=== PATIENT | female | born 1975 | race Caucasian/White ===

== ENCOUNTER 2019-03-08 14:28 | Emergency (ER) | payer OTHER, BC ==
[~2019-03-08] VITALS: Ht 172.7 cm; Wt 109.8 kg
--- NOTE | 2019-03-08 14:58 | REP ---
Four view right wrist: 03/08/2019. Indication: Right wrist trauma. Comparison: None. Findings: There is no acute fracture, subluxation or dislocation. No erosive osseous lesions are present. Bony alignment is anatomic. Impression: No acute osseous injury. Electronically Signed by Carlton Davis DO 03/08/2019 02:49 P
[2019-03-08 16:03] VITALS: BP 135/80
== END 2019-03-08 16:15 | disposition home or self-care (01) ==
LOC: M ED 14:28
DX: S63.521A Sprain of radiocarpal joint of right wrist, initial encounter (principal); X58.XXXA Exposure to other specified factors, initial encounter; Y92.89 Other specified places as the place of occurrence of the external cause; Y99.0 Civilian activity done for income or pay; Z98.84 Bariatric surgery status

== ENCOUNTER 2019-03-23 20:53 | Emergency (ER) | payer BC, OTHER ==
[~2019-03-23] VITALS: Ht 172.7 cm; Wt 110.0 kg
[2019-03-23 20:53] VITALS: BP 133/77
[2019-03-23] MEDS ORDERED: VENTAER INH (21:04)
[2019-03-23] MEDS ORDERED: BENZ200C70 PO (21:39)
[2019-03-23] MEDS ORDERED: PRED20TA PO (21:39)
[2019-03-23] MEDS ORDERED: ZITHTAB PO (21:39)
[2019-03-23] MEDS ORDERED: MUCI600T31 PO (21:39)
[2019-03-23] MEDS ORDERED: DIFL150T PO (21:41)
[2019-03-23] MEDS ORDERED: predniSONE 20 MG TAB PO ONE (21:45)
[2019-03-23] MEDS ORDERED: BENZONATATE 100 MG CAP PO ONE (21:45)
== END 2019-03-23 21:55 | disposition home or self-care (01) ==
LOC: M ED 20:53
DX: J20.9 Acute bronchitis, unspecified (principal); Z79.899 Other long term (current) drug therapy; Z91.040 Latex allergy status

== ENCOUNTER → 2020-05-01 | Outpatient (CLI) | payer SELFPAY ==
[~2020-05-01] MED LIST: BENZ200C70 PO; DIFL150T PO; MUCI600T31 PO; PRED20TA PO; VENTAER INH; ZITHTAB PO
== END ==
LOC: M LABSMTC 14:04
PROVIDERS: ATTEND Pediatrics
DX: Z20.828 Contact with and (suspected) exposure to other viral communicable diseases (principal)

== ENCOUNTER 2020-05-21 20:44 | Emergency (ER) | payer BC, SELFPAY ==
[~2020-05-21] VITALS: Ht 172.7 cm; Wt 124.8 kg
--- NOTE | 2020-05-21 22:51 | REPVR ---
PROCEDURE INFORMATION: Exam: XR Right Ankle Exam date and time: 05/21/2020 9:27 PM Age: 44 years old Clinical indication: Pain; Ankle; Right; Additional info: Twisted ankle TECHNIQUE: Imaging protocol: XR Right ankle. Views: 3 or more views. COMPARISON: No relevant prior studies available. FINDINGS: Bones/joints: There is no fracture or dislocation of the right ankle. There is a right tibiotalar joint effusion. There is osseous spurring from the right lateral malleolus. 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 There is a large plantar calcaneal spur at the origin of the right plantar fascia. There is a posterior calcaneal spur at the insertion of the Achilles tendon, which is compatible with a right Achilles enthesopathy. Soft tissues: There is soft tissue swelling along the medial and lateral aspect of the right ankle and dorsal aspect of the right midfoot. IMPRESSION: 1. No fracture or dislocation of the right ankle. 2. Soft tissue swelling along the medial and lateral aspect of the right ankle and dorsal aspect of the right midfoot. Electronically signed by: Johnson Mendez On 05/21/2020 22:52:02 PM
--- NOTE | 2020-05-21 22:51 | REPVR ---
PROCEDURE INFORMATION: Exam: XR Right Foot Complete Exam date and time: 05/21/2020 9:27 PM Age: 44 years old Clinical indication: Pain; Foot; Right; Additional info: Twisted ankle TECHNIQUE: Imaging protocol: XR Right foot. Views: 3 or more views. COMPARISON: No relevant prior studies available. FINDINGS: Bones/joints: There is no fracture or dislocation of the right foot. There is mild osteoarthritis involving the naviculocuneiform joint and right 1st metatarsophalangeal joint. There is a large plantar calcaneal spur at the origin of the right plantar fascia. There is a posterior calcaneal spur at the insertion of the Achilles tendon, which is compatible with a right Achilles enthesopathy. Soft tissues: There is soft tissue swelling along the medial and lateral aspect of the right ankle and dorsal aspect of the right midfoot. IMPRESSION: 1. No fracture or dislocation of the right foot. 2. Soft tissue swelling along the medial and lateral aspect of the right ankle and dorsal aspect of the right midfoot. Electronically signed by: Johnson Mendez On 05/21/2020 22:51:54 PM
[2020-05-21 23:05] VITALS: BP 138/86
== END 2020-05-21 23:15 | disposition home or self-care (01) ==
LOC: M ED 20:44
DX: S93.491A Sprain of other ligament of right ankle, initial encounter (principal); X50.1XXA Overexertion from prolonged static or awkward postures, initial encounter; Y92.099 Unspecified place in other non-institutional residence as the place of occurrence of the external cause; Y93.9 Activity, unspecified; Y99.9 Unspecified external cause status; Z98.84 Bariatric surgery status; Z91.040 Latex allergy status

== ENCOUNTER 2020-05-24 22:14 | Emergency (ER) | payer SELFPAY ==
[~2020-05-24] VITALS: Ht 172.7 cm; Wt 124.0 kg
[2020-05-25] MEDS ORDERED: ACETAMINOPHEN 500 MG TAB PO ONE (00:30)
[2020-05-25] MEDS ORDERED: LIDOCAINE 4% CREAM 5GM (LMX4) TOP ONE (00:30)
[2020-05-25 00:57] VITALS: BP 146/85
== END 2020-05-25 00:58 | disposition home or self-care (01) ==
LOC: M ED 22:14
DX: S01.01XA Laceration without foreign body of scalp, initial encounter (principal); W22.8XXA Striking against or struck by other objects, initial encounter; Y92.099 Unspecified place in other non-institutional residence as the place of occurrence of the external cause; Y93.9 Activity, unspecified; Y99.9 Unspecified external cause status; Z98.84 Bariatric surgery status; Z91.040 Latex allergy status

== ENCOUNTER 2020-06-11 14:54 | Emergency (ER) | payer SELFPAY ==
[~2020-06-11] VITALS: Ht 172.7 cm; Wt 124.8 kg
[2020-06-11 14:55] VITALS: BP 121/71
== END 2020-06-11 15:47 | disposition home or self-care (01) ==
LOC: M ED 14:54
DX: Z48.02 Encounter for removal of sutures (principal); Z98.84 Bariatric surgery status; Z91.040 Latex allergy status

== ENCOUNTER 2021-05-08 09:44 | Day surgery (SDC) | payer OTHER, SELFPAY ==
[~2021-05-08] VITALS: Ht 172.7 cm; Wt 88.2 kg
[2021-05-08] MEDS ORDERED: PARO20TA3 PO (09:58)
[2021-05-08] MEDS ORDERED: ACETAMINOPHEN 500 MG TAB PO ONE (11:05)
[2021-05-08] MEDS ORDERED: NS 1,000 ML IV ONE (11:05)
[2021-05-08 11:06] LABS: BASO % 0.5 % (0.0-1.0); EOS # 0.1 10^3/uL (0.0-0.5); EOS % 0.8 % (0.0-3.0); HEMATOCRIT 35.7 % (36.0-47.0); HEMOGLOBIN 11.3 g/dl (12.0-15.5); LYMPH # 1.6 10^3/uL (1.5-5.0); LYMPH % 19.4 % (24.0-44.0); MEAN CORPUSCULAR HGB CONC 31.7 g/dl (32.0-36.5); MEAN CORPUSCULAR VOLUME 88.4 fl (80.0-96.0); MONO # 0.7 10^3/uL (0.0-0.8); MONO % 8.7 % (2.0-8.0); NEUTROPHILS % 70.2 % (36.0-66.0); PLATELET COUNT, AUTOMATED 278 10^3/uL (150-450); RED BLOOD COUNT 4.04 10^6/uL (4.00-5.40); WHITE BLOOD COUNT 8.5 10^3/uL (4.0-10.0)
[2021-05-08 11:22] LABS: INR 1.01; PROTHROMBIN TIME 13.7 SECONDS (12.7-14.5)
[2021-05-08 11:23] LABS: PARTIAL THROMBOPLASTIN TIME 31.7 SECONDS (25.9-37.0)
[2021-05-08 11:33] LABS: BILIRUBIN,DIRECT 0.2 MG/DL (0.0-0.2); BILIRUBIN,TOTAL 0.6 MG/DL (0.2-1.0); TOTAL PROTEIN 6.6 GM/DL (6.4-8.2)
[2021-05-08 12:36] LABS: RSV AMPLIFICATION NEGATIVE (NEGATIVE)
[2021-05-08 13:04] LABS: BASO # 0.1 10^3/uL (0.0-0.2); BASO % 0.7 % (0.0-1.0); EOS % 0.1 % (0.0-3.0); HEMATOCRIT 28.7 % (36.0-47.0); LYMPH % 14.6 % (24.0-44.0); MEAN CORPUSCULAR HEMOGLOBIN 28.4 pg (27.0-33.0); MEAN CORPUSCULAR HGB CONC 32.1 g/dl (32.0-36.5); MEAN CORPUSCULAR VOLUME 88.6 fl (80.0-96.0); MONO # 0.6 10^3/uL (0.0-0.8); MONO % 8.9 % (2.0-8.0); NEUTROPHILS # 5.3 10^3/uL (1.5-8.5); NEUTROPHILS % 75.3 % (36.0-66.0); PLATELET COUNT, AUTOMATED 217 10^3/uL (150-450); RED BLOOD COUNT 3.24 10^6/uL (4.00-5.40)
[2021-05-08 13:14] LABS: HEMOGLOBIN 9.2 g/dl (12.0-15.5)
[2021-05-08] MEDS ORDERED: BUPIVACAINE HCL 0.25% 30ML VIAL As Ordered ONE (15:43)
[2021-05-08] MEDS ORDERED: SILVER NITRATE APPLICATOR As Ordered ONE (15:43)
[2021-05-08] MEDS ORDERED: propofoL 200 MG/20 ML VIAL As Ordered ONE (15:57)
[2021-05-08] MEDS ORDERED: LIDOCAINE 2% 100MG/5ML SDV (FOR ANES.) As Ordered ONE (15:57)
[2021-05-08] MEDS ORDERED: ROCURONIUM BROMIDE 50 MG/5 ML VIAL As Ordered ONE (15:57)
[2021-05-08] MEDS ORDERED: fentaNYL 100 MCG/2 ML INJECTION (J3010) As Ordered ONE (15:58)
[2021-05-08] MEDS ORDERED: MIDAZOLAM INJ 2MG/2ML VIAL (J2250 PER 1MG) As Ordered ONE (15:58)
[2021-05-08] MEDS ORDERED: dexameTHASONE 4 MG/ML 1ML VIAL (J1100 PER 1MG) As Ordered ONE (15:58)
[2021-05-08] MEDS ORDERED: ONDANSETRON 4MG/2ML VIAL As Ordered ONE (15:58)
[2021-05-08] MEDS ORDERED: PHENYLephrine 500MCG 5ML (100MCG/ML) SYRINGE As Ordered ONE (16:25)
[2021-05-08] MEDS ORDERED: ceFAZolin 2 GM/D5W 50 ML IV BAG (J0690 PER 500MG) As Ordered ONE (16:33)
[2021-05-08] MEDS ORDERED: ACETAMINOPHEN 1000MG 100ML IV BTL (OFIRMEV) (J0131 PER 10MG) As Ordered ONE (16:50)
[2021-05-08] MEDS ORDERED: KETOROLAC 60MG 2ML VIAL As Ordered ONE (16:54)
[2021-05-08] MEDS ORDERED: SUGAMMADEX SODIUM 500 MG/5 ML VIAL (BRIDION) As Ordered ONE (16:55)
--- NOTE | 2021-05-08 17:42 | ROOPDOC ---
[facility] Report Of Operation Report of Operation DATE OF PROCEDURE: 05/08/21 PREPROCEDURE DIAGNOSES: Traumatic vaginal cuff/apex laceration. POSTPROCEDURE DIAGNOSES: Same. PROCEDURE PERFORMED: Repair of vaginal cuff/apex. SURGEON: Kaci Ferrari DO FACOG ANESTHESIA: General endotracheal. ESTIMATED BLOOD LOSS: Intraoperative, approximately 10 mL. COMPLICATIONS: None. REMARKS: Patient had approximately 500 to 750 mL of blood loss witnessed in the ER. Preoperatively. FINDINGS: 4 to 5 cm vaginal apex/cuff laceration, actively bleeding. No evidence of complete dehiscence. Laceration limited to the vaginal mucosa. Stage II enterocele. Vaginal atrophic changes. No evidence of a vaginal mass or pelvic mass just beyond or adjacent to the vaginal cuff/apex appreciated during exam under anesthesia. PREOPERATIVE ANTIBIOTICS: Ancef 2 g IV x1. DESCRIPTION OF PROCEDURE: The patient was taken to the operating room with an IV running. She was placed on the operating table in the dorsal supine position. General anesthesia was administered and the airway secured without any difficulty. She was placed in the high lithotomy position. She was prepared and draped in the normal sterile fashion. A timeout was performed per protocol. The bladder was drained with an in and out catheter. An exam under anesthesia was performed. A sterile speculum was placed with good visualization of the apex of the vagina/laceration. Blood and clot were removed. The laceration was irrigated. See findings above. 0 Vicryl was used to reapproximate the mucosal edges in a horizontal fashion and in running locked fashion to achieve hemostasis. Excellent closure of the vaginal apex was noted and excellent hemostasis was noted. All instruments were removed from the vagina. Sponge needle and instrument counts were correct per protocol. The patient was taken to the PACU in good and stable condition. DO LEOBARDO Carlson JONATHAN R. DO May 08, 2021 17:42
[2021-05-08] MEDS ORDERED: OXYC1TAB23 PO (17:43)
[2021-05-08] MEDS ORDERED: LR 1,000 ML IV SCH ×2 (18:05)
[2021-05-08] MEDS ORDERED: PERCOCET 5MG/325MG TAB PO PRN (18:05)
[2021-05-08] MEDS ORDERED: ONDANSETRON 4MG/2ML VIAL IV PRN (18:05)
[2021-05-08] MEDS ORDERED: oxyCODONE 5MG TAB PO PRN (18:05)
[2021-05-08] MEDS ORDERED: fentaNYL 100 MCG/2 ML INJECTION (J3010) IV PRN (18:05)
[2021-05-08 19:38] VITALS: BP 137/63
[2021-05-09] MEDS ORDERED: UNRESOLVED CLARIFICATION ENTRY XX SCH (00:01)
== END 2021-05-08 19:55 | disposition home or self-care (01) ==
LOC: M ED 09:44 → M SDC 14:53
PROVIDERS: ATTEND Obstetrics & Gynecology
DX: S31.41XA Laceration without foreign body of vagina and vulva, initial encounter (principal); X58.XXXA Exposure to other specified factors, initial encounter; Y93.89 Activity, other specified; Y99.9 Unspecified external cause status; Y92.89 Other specified places as the place of occurrence of the external cause; Z91.040 Latex allergy status; J45.909 Unspecified asthma, uncomplicated; Z79.899 Other long term (current) drug therapy
CPT/HCPCS: 12002; 80047; 80076; 83690; 84702; 85025; 85610; 85730; 86850; 86900; 86901; 86920; 87631; 93041; 94760; 96374; 99285; J0131; J0690; J1100; J1885; J2250; J2370; J2405; J3010

== ENCOUNTER 2021-08-07 19:33 | Emergency (ER) | payer OTHER ==
[~2021-08-07] VITALS: Ht 172.7 cm; Wt 85.9 kg
[2021-08-07 19:33] VITALS: BP 130/79
[~2021-08-07 19:33] MED LIST changes: +OXYC1TAB23 PO; +PARO20TA3 PO
[2021-08-07] MEDS ORDERED: PARO30TA4 (19:46)
[2021-08-07 21:38] LABS: BASO # 0.1 10^3/uL (0.0-0.2); BASO % 1.2 % (0.0-1.0); EOS # 0.1 10^3/uL (0.0-0.5); EOS % 1.9 % (0.0-3.0); HEMATOCRIT 33.3 % (36.0-47.0); HEMOGLOBIN 10.1 g/dl (12.0-15.5); LYMPH # 2.1 10^3/uL (1.5-5.0); LYMPH % 40.2 % (24.0-44.0); MEAN CORPUSCULAR HEMOGLOBIN 23.7 pg (27.0-33.0); MEAN CORPUSCULAR HGB CONC 30.3 g/dl (32.0-36.5); MEAN CORPUSCULAR VOLUME 78.2 fl (80.0-96.0); MONO # 0.6 10^3/uL (0.0-0.8); MONO % 10.6 % (2.0-8.0); NEUTROPHILS # 2.4 10^3/uL (1.5-8.5); NEUTROPHILS % 45.9 % (36.0-66.0); PLATELET COUNT, AUTOMATED 271 10^3/uL (150-450); RED BLOOD COUNT 4.26 10^6/uL (4.00-5.40); WHITE BLOOD COUNT 5.2 10^3/uL (4.0-10.0)
[2021-08-07 22:07] LABS: ALBUMIN 3.8 GM/DL (3.2-5.2); BILIRUBIN,DIRECT < 0.1 MG/DL (0.0-0.2); BILIRUBIN,TOTAL 0.2 MG/DL (0.2-1.0); BLOOD UREA NITROGEN 13 MG/DL (7-18); CALCIUM LEVEL 8.8 MG/DL (8.5-10.1); CARBON DIOXIDE LEVEL 32 MEQ/L (21-32); CHLORIDE LEVEL 105 MEQ/L (98-107); CREATININE FOR GFR 0.62 MG/DL (0.55-1.30); GLOMERULAR FILTRATION RATE > 60.0 (>58); GLUCOSE, FASTING 85 MG/DL (70-100); LIPASE 190 U/L (73-393); POTASSIUM SERUM 4.1 MEQ/L (3.5-5.1); SODIUM LEVEL 140 MEQ/L (136-145); TOTAL PROTEIN 6.5 GM/DL (6.4-8.2)
[2021-08-07 22:20] LABS: ALT/SGPT 24 U/L (12-78)
== END 2021-08-07 22:55 | disposition home or self-care (01) ==
LOC: M ED 19:33
DX: R10.11 Right upper quadrant pain (principal); R11.2 Nausea with vomiting, unspecified; J45.909 Unspecified asthma, uncomplicated; Z98.84 Bariatric surgery status; Z87.448 Personal history of other diseases of urinary system; Z91.040 Latex allergy status

== ENCOUNTER 2021-08-31 04:02 | Emergency (ER) | payer OTHER ==
[~2021-08-31] VITALS: Ht 172.7 cm; Wt 87.3 kg
[~2021-08-31 04:02] MED LIST changes: +PARO30TA4
[2021-08-31] MEDS ORDERED: OMEP-173 PO (04:07)
[2021-08-31] MEDS ORDERED: KETOROLAC 60MG 2ML VIAL IM ONE (05:40)
[2021-08-31] MEDS ORDERED: LIDOCAINE 2% MDV 20ML VIAL SC ONE (05:40)
[2021-08-31] MEDS ORDERED: BOOSTRIX/ADACEL VACCINE (DIPHTH/PERTUSS/ACELL/TETANUS) 0.5ML SYR IM ONE (06:00)
[2021-08-31] MEDS ORDERED: NEOSPORIN OINT 0.9 GM PKT TOP ONE (07:00)
[2021-08-31 07:10] VITALS: BP 148/87
== END 2021-08-31 07:13 | disposition home or self-care (01) ==
LOC: M ED 04:02
DX: S01.01XA Laceration without foreign body of scalp, initial encounter (principal); W22.8XXA Striking against or struck by other objects, initial encounter; Y92.099 Unspecified place in other non-institutional residence as the place of occurrence of the external cause; Y93.9 Activity, unspecified; Y99.9 Unspecified external cause status; Z79.899 Other long term (current) drug therapy; Z91.040 Latex allergy status
CPT/HCPCS: 12002; 90471; 90715; 96374; 99284; J1885

== ENCOUNTER → 2023-04-07 | Outpatient (REF) | payer OTHER ==
[~2023-04-07] MED LIST changes: +OMEP-173 PO
[2023-04-07 18:55] LABS: BASO # 0.1 10^3/uL (0.0-0.2); BASO % 1.6 % (0.0-1.0); EOS # 0.4 10^3/uL (0.0-0.5); HEMATOCRIT 40.5 % (36.0-47.0); HEMOGLOBIN 13.2 g/dl (12.0-15.5); LYMPH # 1.8 10^3/uL (1.5-5.0); LYMPH % 35.4 % (24.0-44.0); MEAN CORPUSCULAR HEMOGLOBIN 30.8 pg (27.0-33.0); MEAN CORPUSCULAR HGB CONC 32.6 g/dl (32.0-36.5); MEAN CORPUSCULAR VOLUME 94.6 fl (80.0-96.0); MONO # 0.5 10^3/uL (0.0-0.8); NEUTROPHILS # 2.3 10^3/uL (1.5-8.5); NEUTROPHILS % 46.8 % (36.0-66.0); PLATELET COUNT, AUTOMATED 228 10^3/uL (150-450); RED BLOOD COUNT 4.28 10^6/uL (4.00-5.40)
[2023-04-07 19:24] LABS: IRON (FE) 92 UG/DL (50-170); PERCENT SATURATION 31.2 % (13.2-45.0); TOTAL IRON BINDING CAPACITY 295 UG/DL (250-425)
[2023-04-07 19:27] LABS: ALBUMIN 3.7 G/DL (3.2-5.2); ALKALINE PHOSPHATASE 69 U/L (46-116); ALT/SGPT 14 U/L (7.0-40); AST/SGOT 23 U/L (<34); BILIRUBIN,TOTAL 0.5 MG/DL (0.3-1.2); BLOOD UREA NITROGEN 9 MG/DL (9-23); CALCIUM LEVEL 8.5 MG/DL (8.5-10.1); CARBON DIOXIDE LEVEL 30 MMOL/L (20-31); CHLORIDE LEVEL 103 MMOL/L (98-107); CHOLESTEROL LEVEL 213 MG/DL (<200); CHOLESTEROL RISK RATIO 2.09 (<5); CREATININE FOR GFR 0.72 MG/DL (0.55-1.30); FERRITIN 14.5 NG/ML (7.3-270.7); FOLATE 13.1 NG/ML (>5.4); GLOMERULAR FILTRATION RATE > 60.0 (>58); GLUCOSE, FASTING 88 MG/DL (60-100); HDL CHOLESTEROL 101.9 MG/DL (>40); LDL CHOLESTEROL 100.9 MG/DL (<100); NON-HDL-C 111.1 MG/DL; POTASSIUM SERUM 3.6 MMOL/L (3.5-5.1); SODIUM LEVEL 139 MMOL/L (136-145); THYROID STIMULATING HORMONE 6.076 uIU/ML (0.55-4.78); TOTAL 25(OH) VITAMIN D 34.4 NG/ML (20.0-100.0); TOTAL PROTEIN 6.1 G/DL (5.7-8.2); TRIGLYCERIDES LEVEL 51 MG/DL (<150); VITAMIN B12 LEVEL 668 PG/ML (211-911)
== END ==
LOC: M LAB REF 18:27
PROVIDERS: ATTEND Nurse Practitioner Family
DX: E03.0 Congenital hypothyroidism with diffuse goiter (principal); D50.9 Iron deficiency anemia, unspecified; E55.9 Vitamin D deficiency, unspecified; Z98.84 Bariatric surgery status; K91.2 Postsurgical malabsorption, not elsewhere classified; Z13.220 Encounter for screening for lipoid disorders

== ENCOUNTER → 2023-06-11 | Outpatient (REF) | payer OTHER ==
[2023-06-11 18:41] LABS: HEMATOCRIT 38.5 % (36.0-47.0); HEMOGLOBIN 12.4 g/dl (12.0-15.5); MEAN CORPUSCULAR HEMOGLOBIN 30.6 pg (27.0-33.0); MEAN CORPUSCULAR HGB CONC 32.2 g/dl (32.0-36.5); MEAN CORPUSCULAR VOLUME 95.1 fl (80.0-96.0); PLATELET COUNT, AUTOMATED 215 10^3/uL (150-450); RED BLOOD COUNT 4.05 10^6/uL (4.00-5.40); WHITE BLOOD COUNT 4.4 10^3/uL (4.0-10.0)
[2023-06-11 19:14] LABS: FREE T4 0.81 NG/DL (0.89-1.76); THYROID STIMULATING HORMONE 5.653 uIU/ML (0.55-4.78)
[2023-06-11 19:16] LABS: BLOOD UREA NITROGEN 13 MG/DL (9-23); CALCIUM LEVEL 8.1 MG/DL (8.5-10.1); CARBON DIOXIDE LEVEL 33 MMOL/L (20-31); CHLORIDE LEVEL 103 MMOL/L (98-107); CREATININE FOR GFR 0.69 MG/DL (0.55-1.30); GLOMERULAR FILTRATION RATE > 60.0 (>58); GLUCOSE, FASTING 94 MG/DL (60-100); POTASSIUM SERUM 4.8 MMOL/L (3.5-5.1); SODIUM LEVEL 141 MMOL/L (136-145)
[2023-06-11 19:20] LABS: THYROID PEROXIDASE ANTIBODY < 28.0 U/ML (<60.0)
[2023-06-11 19:47] LABS: HEPATITIS C VIRUS ABY INDEX < 0.02 INDEX (<0.8)
== END ==
LOC: M LAB REF 16:23
PROVIDERS: ATTEND Nurse Practitioner Family
DX: R94.6 Abnormal results of thyroid function studies (principal)

== ENCOUNTER → 2023-08-27 | Outpatient (CLI) | payer OTHER ==
[2023-08-27 17:35] LABS: THYROID STIMULATING HORMONE 11.248 uIU/ML (0.55-4.78)
[2023-08-27 18:34] LABS: PTH INTACT 52.9 PG/ML (18.5-88.0)
== END ==
LOC: M WUC 12:03
PROVIDERS: ATTEND Physician Assistant
DX: E03.9 Hypothyroidism, unspecified (principal); E83.51 Hypocalcemia; Z76.89 Persons encountering health services in other specified circumstances

== ENCOUNTER → 2023-11-05 | Outpatient (REF) | payer OTHER ==
[2023-11-05 22:13] LABS: CALCIUM LEVEL 8.4 MG/DL (8.5-10.1)
[2023-11-05 22:18] LABS: THYROGLOBULIN ANTIBODY < 15.0 U/ML (<60.0); THYROID STIMULATING HORMONE 7.897 uIU/ML (0.55-4.78)
== END ==
LOC: M LAB REF 16:18
PROVIDERS: ATTEND Physician Assistant
DX: Z76.89 Persons encountering health services in other specified circumstances (principal); E03.9 Hypothyroidism, unspecified; E83.51 Hypocalcemia

== ENCOUNTER → 2024-03-29 | Outpatient (REF) | payer OTHER ==
[2024-03-29 19:05] LABS: BASO # 0.1 10^3/uL (0.0-0.2); BASO % 1.1 % (0.0-1.0); EOS # 0.7 10^3/uL (0.0-0.5); EOS % 14.3 % (0.0-3.0); HEMOGLOBIN 13.1 g/dl (12.0-15.5); LYMPH # 1.6 10^3/uL (1.5-5.0); MEAN CORPUSCULAR HEMOGLOBIN 30.5 pg (27.0-33.0); MEAN CORPUSCULAR HGB CONC 31.2 g/dl (32.0-36.5); MEAN CORPUSCULAR VOLUME 97.7 fl (80.0-96.0); MONO # 0.5 10^3/uL (0.0-0.8); NEUTROPHILS # 1.7 10^3/uL (1.5-8.5); NEUTROPHILS % 37.6 % (36.0-66.0); PLATELET COUNT, AUTOMATED 200 10^3/uL (150-450); WHITE BLOOD COUNT 4.6 10^3/uL (4.0-10.0)
[2024-03-29 21:33] LABS: IRON (FE) 49 UG/DL (50-170); PERCENT SATURATION 15.7 % (13.2-45.0); TOTAL IRON BINDING CAPACITY 313 UG/DL (250-425)
[2024-03-29 21:34] LABS: ALBUMIN 3.7 G/DL (3.2-5.2); ALKALINE PHOSPHATASE 58 U/L (35-104); ALT/SGPT 15 U/L (7.0-40); AST/SGOT 18 U/L (<34); BILIRUBIN,TOTAL 0.2 MG/DL (0.3-1.2); BLOOD UREA NITROGEN 10 MG/DL (9-23); CALCIUM LEVEL 8.6 MG/DL (8.5-10.1); CARBON DIOXIDE LEVEL 31 MMOL/L (20-31); CHLORIDE LEVEL 107 MMOL/L (98-107); CHOLESTEROL LEVEL 256 MG/DL (<200); CHOLESTEROL RISK RATIO 2.08 (<5); CREATININE FOR GFR 0.82 MG/DL (0.55-1.30); GLOMERULAR FILTRATION RATE > 60.0 (>51); GLUCOSE, FASTING 89 MG/DL (60-100); LDL CHOLESTEROL 117.8 MG/DL (<100); MAGNESIUM LEVEL 1.8 MG/DL (1.8-2.4); POTASSIUM SERUM 4.3 MMOL/L (3.5-5.1); SODIUM LEVEL 142 MMOL/L (136-145); TOTAL PROTEIN 6.4 G/DL (5.7-8.2); TRIGLYCERIDES LEVEL 76 MG/DL (<150)
[2024-03-29 21:35] LABS: FOLATE 14.6 NG/ML (>5.4); THYROID STIMULATING HORMONE 9.714 uIU/ML (0.55-4.78); TOTAL 25(OH) VITAMIN D 34.5 NG/ML (20.0-100.0)
[2024-03-29 21:36] LABS: VITAMIN B12 LEVEL 1016 PG/ML (211-911)
== END ==
LOC: M LAB REF 16:28
PROVIDERS: ATTEND Physician Assistant
DX: E03.9 Hypothyroidism, unspecified (principal); D50.9 Iron deficiency anemia, unspecified; Z98.84 Bariatric surgery status; K91.2 Postsurgical malabsorption, not elsewhere classified; E66.9 Obesity, unspecified; Z68.35 Body mass index [BMI] 35.0-35.9, adult; Z13.220 Encounter for screening for lipoid disorders; Z13.1 Encounter for screening for diabetes mellitus

== ENCOUNTER → 2024-04-12 | Outpatient (REF) | payer OTHER | LOC: M LAB REF 16:46 | PROVIDERS: ATTEND Physician Assistant | DX: Z76.89 Persons encountering health services in other specified circumstances (principal) ==

== ENCOUNTER → 2024-07-23 | Day surgery (SDC) | payer OTHER ==
[~2024-07-23] VITALS: Ht 172.7 cm; Wt 122.4 kg
[~2024-07-23] MED LIST changes: +B-12100010 PO; +CALC250T PO; +LEVO100T5 PO; +NIFE15CA PO; +PARO40TA2 PO; +VITA100093 PO; +kratom
[2024-07-23 12:44] VITALS: TEMP 97.2
[2024-07-23 13:15] VITALS: BP 103/76; O2SAT 95
== END | disposition home or self-care (01) ==
LOC: M OPP 11:01
PROVIDERS: ATTEND Surgery
DX: Z12.11 Encounter for screening for malignant neoplasm of colon (principal); Z91.040 Latex allergy status; Z79.899 Other long term (current) drug therapy; J45.909 Unspecified asthma, uncomplicated; Z98.84 Bariatric surgery status

== ENCOUNTER 2024-08-13 03:46 | Emergency (ER) | payer OTHER ==
[~2024-08-13] VITALS: Ht 172.7 cm; Wt 56.8 kg
[2024-08-13 04:31] LABS: BASO # 0.1 10^3/uL (0.0-0.2); EOS # 0.2 10^3/uL (0.0-0.5); EOS % 2.3 % (0.0-3.0); HEMATOCRIT 41.2 % (36.0-47.0); HEMOGLOBIN 13.4 g/dl (12.0-15.5); LYMPH # 1.5 10^3/uL (1.5-5.0); LYMPH % 17.2 % (24.0-44.0); MEAN CORPUSCULAR HEMOGLOBIN 31.6 pg (27.0-33.0); MEAN CORPUSCULAR HGB CONC 32.5 g/dl (32.0-36.5); MEAN CORPUSCULAR VOLUME 97.2 fl (80.0-96.0); MONO # 0.5 10^3/uL (0.0-0.8); MONO % 5.4 % (2.0-8.0); NEUTROPHILS # 6.6 10^3/uL (1.5-8.5); NEUTROPHILS % 73.9 % (36.0-66.0); PLATELET COUNT, AUTOMATED 223 10^3/uL (150-450); RED BLOOD COUNT 4.24 10^6/uL (4.00-5.40); WHITE BLOOD COUNT 8.9 10^3/uL (4.0-10.0)
[2024-08-13 04:52] LABS: LIPASE 34 U/L (12-53)
[2024-08-13 04:54] LABS: ALKALINE PHOSPHATASE 65 U/L (35-104); ALT/SGPT 17 U/L (7.0-40); AST/SGOT 24 U/L (<34); BILIRUBIN,DIRECT < 0.1 MG/DL (<0.4); BILIRUBIN,TOTAL 0.3 MG/DL (0.3-1.2); BLOOD UREA NITROGEN 22 MG/DL (9-23); CALCIUM LEVEL 8.8 MG/DL (8.5-10.1); CARBON DIOXIDE LEVEL 29 MMOL/L (20-31); CHLORIDE LEVEL 102 MMOL/L (98-107); CREATININE FOR GFR 1.05 MG/DL (0.55-1.30); GLOMERULAR FILTRATION RATE 58.8 (>51); GLUCOSE, FASTING 93 MG/DL (60-100); POTASSIUM SERUM 4.1 MMOL/L (3.5-5.1); SODIUM LEVEL 141 MMOL/L (136-145); TOTAL PROTEIN 6.9 G/DL (5.7-8.2)
[2024-08-13] MEDS: KETOROLAC 30 MG/ML 1ML VIAL IV ONE (05:41)
[2024-08-13 06:31] VITALS: BP 120/61; TEMP 98; O2SAT 95
== END 2024-08-13 07:10 | disposition home or self-care (01) ==
LOC: EDBD 03:46 → M ED 03:46
DX: R10.9 Unspecified abdominal pain (principal); Z98.84 Bariatric surgery status; Z79.899 Other long term (current) drug therapy; Z91.040 Latex allergy status
CPT/HCPCS: 80047; 80048; 80076; 83690; 85025; 93041; 96374; 99285; J1885

== ENCOUNTER → 2024-12-14 | Outpatient (REF) | payer OTHER ==
[2024-12-14 18:56] LABS: BASO # 0.1 10^3/uL (0.0-0.2); BASO % 1.2 % (0.0-1.0); EOS # 0.2 10^3/uL (0.0-0.5); EOS % 3.7 % (0.0-3.0); LYMPH # 1.6 10^3/uL (1.5-5.0); LYMPH % 36.3 % (24.0-44.0); MONO # 0.4 10^3/uL (0.0-0.8); MONO % 9.1 % (2.0-8.0); NEUTROPHILS # 2.1 10^3/uL (1.5-8.5); NEUTROPHILS % 49.5 % (36.0-66.0); PLATELET COUNT, AUTOMATED 196 10^3/uL (150-450)
[2024-12-14 19:01] LABS: C REACTIVE PROTEIN QUANTITATIV < 0.50 MG/DL (<1.0)
[2024-12-14 19:02] LABS: ALT/SGPT 18 U/L (7.0-40); AST/SGOT 26 U/L (<34); CALCIUM LEVEL 8.5 MG/DL (8.5-10.1); CARBON DIOXIDE LEVEL 28 MMOL/L (20-31); CHLORIDE LEVEL 101 MMOL/L (98-107); CREATININE FOR GFR 0.76 MG/DL (0.55-1.30); GLOMERULAR FILTRATION RATE > 90.0 (>51); IRON (FE) 97 UG/DL (50-170); PERCENT SATURATION 31.9 % (13.2-45.0); POTASSIUM SERUM 4.1 MMOL/L (3.5-5.1); SODIUM LEVEL 140 MMOL/L (136-145)
[2024-12-14 19:15] LABS: RHEUMATOID FACTOR QUANT 3.7 IU/ML (<14)
[2024-12-14 19:24] LABS: ERYTHROCYTE SEDIMENTATION RATE 7 mm/hr (0-30)
== END ==
LOC: M LAB REF 17:47
PROVIDERS: ATTEND Nurse Practitioner Family
DX: M25.50 Pain in unspecified joint (principal); D50.9 Iron deficiency anemia, unspecified; E03.9 Hypothyroidism, unspecified

== ENCOUNTER → 2025-02-07 | Outpatient (CLI) | payer OTHER ==
[2025-02-07 14:18] LABS: IRON (FE) 122 UG/DL (50-170); RHEUMATOID FACTOR QUANT < 3.5 IU/ML (<14)
== END ==
LOC: M LAB 13:17
PROVIDERS: ATTEND Nurse Practitioner Family
DX: E03.9 Hypothyroidism, unspecified (principal); M25.50 Pain in unspecified joint; D50.9 Iron deficiency anemia, unspecified

== ENCOUNTER → 2025-04-19 | Outpatient (CLI) | payer OTHER | LOC: M LAB 14:38 | PROVIDERS: ATTEND Nurse Practitioner Family | DX: E03.9 Hypothyroidism, unspecified (principal) ==